=== PATIENT | male | born 1970 | race Two or more races ===

== ENCOUNTER 2020-12-28 11:00 | Inpatient (IN) | payer BC ==
[~2020-12-28] VITALS: Ht 177.8 cm; Wt 97.1 kg
[2020-12-28] MEDS ORDERED: SODIUM CHLORIDE 0.9% 1,000ML IVBOLUS ONE (11:30)
[2020-12-28] MEDS ORDERED: SODIUM CHLORIDE FLUSH 10ML SYR IVF ONE (11:30)
[2020-12-28 11:48] LABS: BASOPHILS % (AUTO) 1 % (0-1); EOSINOPHILS % (AUTO) 1 % (1-7); LYMPHOCYTES % (AUTO) 29 % (22-44); MEAN CORPUSCULAR HGB CONC 33.4 g/dL (33.2-36.2); MEAN PLATELET VOLUME 9.3 fL (7.4-10.4); MONOCYTES % (AUTO) 15 % (2-9); NEUTROPHILS % (AUTO) 55 % (42-75); PLATELET COUNT 211 x10^3/uL (130-400); RED BLOOD COUNT 4.73 x10^6/uL (4.38-5.82); RED CELL DISTRIBUTION WIDTH 17.8 % (9.4-14.8)
[2020-12-28 11:51] LABS: ALANINE AMINOTRANSFERASE 122 U/L (12-78); ALBUMIN 3.2 g/dL (3.4-5.0); ANION GAP 8 mmol/L (5-15); CALCIUM 9.1 mg/dL (8.5-10.1); CHLORIDE 106 mmol/L (98-107); CREATININE 1.17 mg/dL (0.7-1.3); MD NO
[2020-12-28 11:53] LABS: ALKALINE PHOSPHATASE 97 U/L (45-117); BILIRUBIN,TOTAL 0.7 mg/dL (0.2-1.0); TOTAL PROTEIN 8.1 g/dL (6.4-8.2)
[2020-12-28] MEDS ORDERED: POTASSIUM CHLORIDE 20 MEQ TAB.ER.PRT ONE (12:30)
[2020-12-28] MEDS ORDERED: POTASSIUM CHLORIDE 40 MEQ in SODIUM CHLORIDE 0.9% 500 ML IV ONE (12:30)
--- NOTE | 2020-12-28 12:30 | NUR ---
EDP AT BEDSIDE TO POSS ADMIT.
[2020-12-28] MEDS: POTASSIUM CHLORIDE 20 MEQ TAB.ER.PRT PO SCH (12:36)
--- NOTE | 2020-12-28 14:54 | NUR ---
PT AMBULATED TO BR WITH A STEADY GAIT.
[2020-12-28] MEDS ORDERED: ACETAMINOPHEN 325 MG TABLET PO PRN (15:00)
[2020-12-28] MEDS ORDERED: ONDANSETRON 2MG/ML, 2ML IVPush PRN (15:00)
[2020-12-28] MEDS ORDERED: ONDANSETRON ODT 4 MG PO PRN (15:00)
--- NOTE | 2020-12-28 15:00 | NUR ---
STOOL SAMPLE COLLECTED. STOOL IS BROWN AND FORMED WITH APPROX 50 MLS DARK RED BLOOD. PT DENIES ANY PAIN WHILE GOING TO BR.
[2020-12-28] MEDS ORDERED: LOSA50TA14 PO (15:07)
[2020-12-28] MEDS ORDERED: CHLO25TA PO (15:07)
[2020-12-28] MEDS ORDERED: DILT240C61 PO (15:08)
--- NOTE | 2020-12-28 15:26 | NUR ---
ADMIT ORDERS CHANGED TO RESP FLOOR.
--- NOTE | 2020-12-28 17:04 | NUR ---
PT RESTING COMFORTABLY. DIET TRAY ORDERED. SO AT BEDSIDE. EDUCATED PT, SO ON VISITING RESP FLOOR. VERBALIZE UNDERSTANDING.
[2020-12-28] MEDS ORDERED: NS + 40MEQ KCL 1,000 ML IV ONE (17:17)
[2020-12-28] MEDS ORDERED: HEPARIN 5,000 UNITS/ML, 1ML ONE (17:17)
[2020-12-28] MEDS: HEPARIN 5,000 UNITS/ML, 1ML SQ SCH (17:22)
[2020-12-28] MEDS: NS + 40MEQ KCL 1,000 ML IV SCH (17:22)
[2020-12-28 19:39] VITALS: BP 119/77
[2020-12-29 00:09] VITALS: BP 128/80
[2020-12-29] MEDS: HEPARIN 5,000 UNITS/ML, 1ML SQ SCH ×3 (00:13→17:00)
[2020-12-29] MEDS: NS + 40MEQ KCL 1,000 ML IV SCH ×2 (00:14→08:34)
[2020-12-29 05:40] LABS: BASOPHILS % (AUTO) 1 % (0-1); EOSINOPHILS % (AUTO) 1 % (1-7); LYMPHOCYTES % (AUTO) 41 % (22-44); MEAN CORPUSCULAR HEMOGLOBIN 26.9 pg (27.5-34.5); MEAN PLATELET VOLUME 9.1 fL (7.4-10.4); MONOCYTES % (AUTO) 14 % (2-9); NEUTROPHILS % (AUTO) 43 % (42-75); PLATELET COUNT 189 x10^3/uL (130-400); RED BLOOD COUNT 4.37 x10^6/uL (4.38-5.82); RED CELL DISTRIBUTION WIDTH 17.9 % (9.4-14.8)
[2020-12-29 05:44] LABS: MD NO
[2020-12-29 05:55] LABS: ALBUMIN 2.9 g/dL (3.4-5.0); ANION GAP 5 mmol/L (5-15); CALCIUM 8.6 mg/dL (8.5-10.1); CHLORIDE 117 mmol/L (98-107)
[2020-12-29 06:07] LABS: ALANINE AMINOTRANSFERASE 94 U/L (12-78); ALKALINE PHOSPHATASE 86 U/L (45-117); BILIRUBIN,TOTAL 0.7 mg/dL (0.2-1.0); CREATININE 0.81 mg/dL (0.7-1.3); TOTAL PROTEIN 7.3 g/dL (6.4-8.2)
[2020-12-29] MEDS: POTASSIUM CHLORIDE 20 MEQ TAB.ER.PRT PO SCH (07:03)
[2020-12-29] MEDS ORDERED: PANTOPRAZOLE 40MG TABLET PO SCH (07:30)
[2020-12-29 07:38] VITALS: BP 143/95
[2020-12-29] MEDS ORDERED: LOSARTAN 50MG TABLET PO SCH (11:00)
[2020-12-29] MEDS ORDERED: DILTIAZEM 240 MG CAP.ER.24H PO SCH (11:02)
[2020-12-29 11:22] VITALS: BP 133/83
[2020-12-29 13:37] VITALS: BP 140/82
== END 2020-12-29 18:07 | disposition home or self-care (01) | DRG 392 ==
LOC: ED 12:08 → EDIP 12:29 → 3N 18:52
PROVIDERS: ADMIT Hospitalist; ATTEND Hospitalist
DX: R19.7 Diarrhea, unspecified (principal); E87.6 Hypokalemia; D50.9 Iron deficiency anemia, unspecified; I10 Essential (primary) hypertension; M32.9 Systemic lupus erythematosus, unspecified; K74.60 Unspecified cirrhosis of liver; Z20.822 Contact with and (suspected) exposure to COVID-19; Z91.030 Bee allergy status
CPT/HCPCS: 36415; 71045; 80053; 83690; 83735; 84100; 84443; 85025; 87046; 87427; 89055; 93005; 96361; 96365; 96366; 99285; G0378; J1644; J3480; J7030; J7040; U0003